=== PATIENT | female | born 1970 | race Caucasian/White ===

== ENCOUNTER 2021-06-14 13:27 | Emergency (ER) | payer MEDICAID ==
[~2021-06-14] VITALS: Ht 165.1 cm; Wt 86.4 kg
[2021-06-14] MEDS ORDERED: morphine 4 MG/ML inj SYRINge IV ONE (17:25)
[2021-06-14] MEDS ORDERED: dexamethasone sod phosphate 10mg/ml inj IV STA (17:52)
--- NOTE | 2021-06-14 18:33 | NUR ---
Pt went to MRI.
[2021-06-14] MEDS ORDERED: LORazepam 2 mg/ml vial IV ONE (19:15)
[2021-06-14] MEDS ORDERED: GADOTERATE MEGLUMINE 7.5 MMOL/15 ML VIAL IV ONE (19:17)
[2021-06-14 20:15] LABS: EOSINOPHILS % (AUTO) 0.1 % (0-6); LYMPHOCYTES # (AUTO) 1.2 X10'3 (1.1-4.8)
[2021-06-14 20:17] LABS: BASOPHILS # (AUTO) 0.1 X10'3 (0-0.2); BASOPHILS % (AUTO) 0.5 % (0-1); HEMATOCRIT 48.7 % (35.0-45.0); HEMOGLOBIN 16.2 g/dl (12.0-16.0); LYMPHOCYTES % (AUTO) 8.8 % (21-51); MEAN CORPUSCULAR HEMOGLOBIN 30.3 PG (27.0-31.0); MEAN CORPUSCULAR HGB CONC 33.3 g/dL (33.0-36.5); MEAN PLATELET VOLUME 8.5 FL (7.4-10.4); MONOCYTES # (AUTO) 0.2 X10'3 (0-0.9); MONOCYTES % (AUTO) 1.2 % (2-12); NEUTROPHILS # (AUTO) 11.8 X10'3 (1.8-7.7); NEUTROPHILS % (AUTO) 89.4 % (42-75); PLATELET COUNT 335 X10'3 (140-440); RED BLOOD COUNT 5.35 X10'6 (4.20-5.60); RED CELL DISTRIBUTION WIDTH 13.5 % (11.5-14.5); WHITE BLOOD COUNT 13.2 X10'3 (4.5-11.0)
[2021-06-14 20:27] LABS: APTT 32 SECONDS (22-32)
[2021-06-14 20:29] LABS: ALANINE AMINOTRANSFERASE 29 U/L (12-78); ALBUMIN 4.1 G/DL (3.4-5.0); ALBUMIN/GLOBULIN RATIO 0.9 (1.1-1.5); ALKALINE PHOSPHATASE 98 IU/L (46-116); ANION GAP 14 (8-16); ASPARTATE AMINO TRANSFERASE 23 U/L (10-37); BILIRUBIN,TOTAL 0.4 MG/DL (0.1-1.0); BLOOD UREA NITROGEN 11 MG/DL (7-18); BUN/CREATININE RATIO 13.9 (6.6-38.0); CALCIUM 9.5 MG/DL (8.5-10.1); CHLORIDE 101 MMOL/L (99-107); CREATININE 0.79 MG/DL (0.40-0.90); GLUCOSE 105 MG/DL (70-104); SODIUM 136 MMOL/L (135-145); TOTAL CARBON DIOXIDE 21.5 MMOL/L (24-32); TOTAL PROTEIN 8.8 G/DL (6.4-8.2); eGFR 77 ML/MIN
[2021-06-14 20:30] LABS: POTASSIUM 4.7 MMOL/L (3.5-5.1)
[2021-06-15 01:53] VITALS: BP 126/72
== END 2021-06-15 01:58 | disposition short-term general hospital (02) ==
LOC: ER 13:28
DX: G93.89 Other specified disorders of brain (principal); Z20.822 Contact with and (suspected) exposure to COVID-19; R51.9 Headache, unspecified; R11.0 Nausea; R42 Dizziness and giddiness; R60.9 Edema, unspecified; F15.90 Other stimulant use, unspecified, uncomplicated; Z72.89 Other problems related to lifestyle
CPT/HCPCS: 70450; 70553; 71045; 80053; 85025; 85610; 85730; 87635; 96374; 96375; 99285; A9575; C9803; J1100; J2060; J2270